=== PATIENT | female | born 1990 | race Caucasian/White ===

== ENCOUNTER 2023-03-19 05:14 | Inpatient (IN) | payer OTHER, SELFPAY ==
[2023-03-19] VITALS (53 sets, daily range): BP systolic 95–131; BP diastolic 34–83; PULSE 65–93; RESP 15–16; TEMP 36.3–37; O2SAT 91–99; BMI 34.9
[2023-03-19] MEDS: lactated ringers 1,000 ML 999 ML IV (06:15)
[2023-03-19 06:26] LABS: Basophils % 0.4 %; Eosinophils # 0.1 10^3/uL (0.0-0.8); Eosinophils % 1.1 %; Hematocrit 33.2 % (36-47); Lymphocytes # 2.7 10^3/uL (0.8-4.8); Lymphocytes % 25.6 %; Mean Corpuscular HGB Conc 31.6 g/dL (30-55); Mean Corpuscular Hemoglobin 26.4 pg (27-33); Mean Corpuscular Volume 83.6 fl (85-98); Mean Platelet Volume 9.7 fL (7.4-10.4); Monocytes # 0.8 10^3/uL (0.2-0.9); Monocytes % 7.8 %; Neutrophils % 64.3 %; Nucleated Red Blood Cells % 0 %; Platelet Count 256 10^3/cmm (157-399); Red Blood Count 3.97 10^6/uL (3.85-5.65); White Blood Count 10.56 10^3/uL (3.29-11.43)
--- NOTE | 2023-03-19 06:40 | PM.OBGYHP ---
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 She presents to the hospital today for a section due to breech presentation. Her has otherwise been unremarkable. There have been no complications. Her lab work has been unremarkable. Her blood type is O-. Her antibody screen is negative. Her Pap test was within normal limits. Her HPV was negative. She passed her 3-hour glucose screen. She received RhoGAM injection on 02 January. She is group B strep negative. The remainder of her infectious disease profile was within normal limits. Present Details : 3 Para: 1 Labs Rubella: Non-Immune RPR: Negative GBS: Negative Review of Systems General: Reports: 10 or more systems reviewed and unremarkable except in HPI and below Const: Reports: fatigue; Denies: fever(s) Eyes: Denies: change in vision Card: Denies: chest pain Musc: Reports: back pain Jerrod/Lymph: Denies: easy bruising Medications/Allergies Home Medications Medication Instructions Recorded Confirmed Last Taken Type ewjtvcqo-[id number]-Bh-FA 1 mg 1 tab PO DAILY 03/19/23 03/19/23 03/17/23 History tablet hydrocodone 5 mg-acetaminophen 325 1 - 2 tab PO Q4H PRN Moderate To 03/20/23 Unknown Rx mg tablet Severe Pain #28 tabs ibuprofen 800 mg tablet 800 mg PO TID #45 tabs 03/20/23 Unknown Rx Allergies Allergy/AdvReac Type Severity Reaction Status Date / Time No Known Allergies Allergy Verified 03/19/23 06:19 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 PFSH: Family History (Updated 03/19/23 @ 06:42 by Dave Zhou MD) Other Diabetes mellitus, type 2 Hypertension Social History Smoking and tobacco/nicotine status: never used tobacco/nicotine History History History 3 Term 1 0 Miscarriages/Ectopic 1 Living Children 1 Vitals/I&O/Wt Last Vital Signs Pulse 80 03/19/23 05:22 Resp 15 03/19/23 06:13 BP 110/68 03/19/23 05:22 O2 Del Method Room Air 12/11/23 06:22 Weight last 48 hrs Weight 223 lb Physical Exam Const: COMMON NORMALS: patient oriented x3 and alert HENMT: COMMON NORMALS: moist oral mucous membranes HEAD & SCALP: normal to inspection Chest: COMMONS NORMALS: normal inspection of the chest Resp: COMMON NORMALS: clear to auscultation bilaterally AUSCULTATION: clear to auscultation bilaterally Cardio: COMMON NORMALS: regular rate and regular rhythm RATE: regular rate RHYTHM: regular rhythm GI: INSPECTION: Yes normal to inspection and Yes other (Gravid) Extremity: COMMON NORMALS: normal to inspection GENERAL: Yes edema (Trace) Neuro: COMMON NORMALS: patient oriented x3, moves all extremities and no sensory deficits noted SENSORIUM/ORIENTATION: Yes alert Psych: COMMON NORMALS: mental status grossly normal Skin: COMMON NORMALS: no rashes or lesions noted GENERAL SKIN EXAM: no rashes or lesions noted Data 03/19/23 18:15 Results Labs OB ([facility]): Blood Type O Negative 03/19/23 Antibody Screen Positive 03/19/23 Hct 30.2 % (36-47) L 03/19/23 Hgb 9.60 g/dL (11.27-16.99) L 03/19/23 Rho(D) Type Negative 03/19/23 Plt Count 216 10^3/cmm (157-399) 03/19/23 A&P Assessment and plan (1) 39 weeks gestation of : (2) Breech presentation: We will proceed with a primary section due to breech presentation. We have discussed the risks including the risk of bleeding, infection, and damage to intra-abdominal organs. She and her have no further questions and wished to proceed. (3) Sterilization education: She also desires to have an intraoperative tubal ligation. We discussed the risks of bleeding, infection, damage to intra-abdominal organs. We also discussed the 1-200 chance of becoming again despite a successful tubal ligation. In addition we discussed the increased possibility of an ectopic . Attestations Medical Necessity Statement*: Routine and post care Coding Level of Care Code Acute Code for Chg Fwd Diagnoses 39 weeks gestation of Z3A.39 Breech presentation O32.1XX0 Sterilization education Z30.09
[2023-03-19] MEDS: metoclopramide 5 mg/mL SDV 2 mL 10 MG IVP (06:44)
[2023-03-19] MEDS: famotidine 20 mg/2 mL INJ IVP (06:45)
--- NOTE | 2023-03-19 06:45 | ANES.PREANE2 ---
Pre-Anesthetic Assessment Height/Weight: Height 1.7 m Weight 101.151 kg Pulse Resp BP O2 Del Method 80 16 110/68 Room Air 03/19/23 05:22 03/19/23 08:30 03/19/23 05:22 03/19/23 06:22 Preop Diagnosis: Breech Operation Date: 03/19/23 07:23 Proposed Procedures p Section 62420,O32.1xx9,Z34.83(Not Applicable) - Dave Zhou MD Familial anesthetic complications: None Was Beta Chiara taken within 24 hours: N/A Was Clonidine taken within 24 hours: N/A Last intake: Intake Last Liquid Date 03/18/23 Last Liquid Time 22:45 Last Solid Date 03/18/23 Last Solid Time 20:00 Social No alcohol and No tobacco Exam alert, oriented x 3, clear to auscultation bilaterally and regular rate & rhythm Airway Submandibular: within normal limits Cervical ROM: within normal limits Mallampati: Class II Dentition: full History/ROS No significant history except as noted Pulmonary None reported CV/HEM None reported None reported Hepatic None reported GI Gastroesophageal Reflux Disease Metabolic None reported Musc/skel None reported Neuropsych None reported Anesthetic Plan ASA status: 2 Anesthesia: Anesthesia Evaluation and Regional (specify below) (SAB) Risk of > 500 ml blood loss (7ml/kg in children): Yes, adequate IV access and fluids planned Medications/Allergies Home Medications Medication Instructions Recorded Confirmed Last Taken Type ayhgwovz-wof-Fc-FA 1 mg 1 tab PO DAILY 03/19/23 03/19/23 03/17/23 History tablet Allergies Allergy/AdvReac Type Severity Reaction Status Date / Time No Known Allergies Allergy Verified 03/19/23 06:19 [facility] Anesthesia Family History (Updated 03/19/23 @ 06:42 by Dave Zhou MD) Other Diabetes mellitus, type 2 Hypertension Social History Smoking and tobacco/nicotine status: never used tobacco/nicotine Female Reproductive History : 3 Data Anesthesia 03/19/23 06:03 Short CBC 03/19/23 Range/Units 06:03 WBC 10.56 (3.29-11.43) 10^3/uL Hgb 10.50 L (11.27-16.99) g/dL Hct 33.2 L (36-47) % MCV 83.6 L (85-98) fl Plt Count 256 (157-399) 10^3/cmm Neut % (Auto) 64.3 % Neut # (Auto) 6.80 (1.8-7.7) 10^3/uL Blood Bank 03/19/23 06:03 Blood Type O Negative Rho(D) Type Negative Antibody Screen Positive Cardiac Studies: No Data to Display
[2023-03-19] MEDS: citric acid-sodium citrate 30 mL UDC PO (06:46)
[2023-03-19] MEDS: ceFAZolin 2,000 MG in sodium chloride 0.9% (plus) 50 ML 100 MG IV (06:46)
--- NOTE | 2023-03-19 08:14 | PM.OP ---
Operative Report Date of procedure: March 19, 2023 Pre-op diagnosis: 32-year-old 3 para 1-0-1-1 at 39 weeks estimated gestational age presenting for a due to breech presentation. She also desires sterilization Post-op diagnosis: Status post low-transverse section with intraoperative bilateral tubal ligation Procedure done: Primary low-transverse section with a bilateral tubal ligation Specimens removed/disposition: 1. Female with a weight of 7 pounds 13 ounces and Apgars of 8, 9 2. Bilateral fallopian tube segments with the right segment being tagged 3. Placenta with a three-vessel cord delivered intact Pathology: Bilateral fallopian tube segments with the right segment being tagged Surgeon: Dave Zhou MD Lead Quality Control Technician: Ale Douglass Anesthesia: Spinal Estimated blood loss: 500 Complications: None Procedure: The patient was brought back to the operating room where she was prepped and draped in usual sterile fashion. Anesthesia was found to be adequate. A lower transverse skin incision was then made with a #10 blade. I then dissected down to the underlying subcutaneous tissue until arriving at the prerectal fascia. The fascia was then nicked with the scalpel bilaterally. The fascial incisions were then carried laterally with Sampson scissors. Attention was then turned to the superior aspect of the incision which was grasped with kochers and tented up away from the underlying rectus abdominis muscles. The muscles were then dissected away from the fascia manually, and later with Sampson scissors. Attention was then turned to the inferior aspect of the incision, and the fascia was dissected away from the underlying muscle in similar fashion. The rectus abdominis muscles were then spread manually. The peritoneum was entered manually. Excellent visualization of the uterus was noted. A lower transverse uterine incision was then made with a #10 blade. Upon arriving at the intrauterine cavity, the uterine incision was then extended manually. The was noted to be in vertex position. The baby was delivered without difficulty from a footling breech presentation. After the baby was completely delivered, the mouth and nose were suctioned at the site of the incision. There was no meconium. There was no nuchal cord. The cord was cut and clamped. The baby was then handed to the waiting nurse. The placenta was removed intact. The uterus was externalized. The intrauterine cavity was cleansed of any remaining debris. The uterine incision was reapproximated in 2 layers. The first layer was performed with 0 Vicryl in a running locked stitch. The second layer was an imbricating stitch also using 0 Vicryl. The uterus was replaced into the abdomen. The peritoneum was then irrigated with warm saline. I reexamined the uterine incision and found it to be hemostatic. The rectus abdominis muscles were then reapproximated using 0 Vicryl in a running stitch. The fascia was then reapproximated using 0 Vicryl in running stitch. The subcutaneous tissue was then reapproximated using 0 Vicryl in a running stitch. The skin was reapproximated using rafi. A sterile dressing was placed. All counts were correct x2. Both the mother and baby were in stable condition.
--- NOTE | 2023-03-19 08:50 | ANE.PACU2 ---
Inpatient post-anesthesia follow up: Airway intact: Yes Vital signs: Temperature 97.8 F Pulse Rate 93 Respiratory Rate 16 Blood Pressure 131/83 Pulse Oximetry 99 Oxygen Delivery Me thod Room Air Oxygen Flow Rate Fraction of Inspir ed Oxygen Hydration adequate: Yes Nausea and vomiting: No Pain level: 1 Mental status: Baseline
[2023-03-19] MEDS: dextrose 5%-lactated ringers 1,000 ML 125 ML IV ×2 (11:36→20:12)
[2023-03-19] MEDS: HYDROcodone-acetaminophen 5-325 mg Tablet PO ×2 (12:32→20:13)
[2023-03-19] MEDS: ketorolac 30 mg/mL INJ IVP ×2 (13:41→20:14)
[2023-03-19 18:49] LABS: Hematocrit 30.2 % (36-47); Mean Corpuscular HGB Conc 31.8 g/dL (30-55); Mean Corpuscular Hemoglobin 26.7 pg (27-33); Mean Corpuscular Volume 84.1 fl (85-98); Mean Platelet Volume 9.7 fL (7.4-10.4); Platelet Count 216 10^3/cmm (157-399); Red Blood Count 3.59 10^6/uL (3.85-5.65); White Blood Count 13.57 10^3/uL (3.29-11.43)
[2023-03-19] MEDS: docusate sodium 100 mg Capsule PO (20:13)
[2023-03-19] MEDS: ferrous sulfate EC 325 mg Tablet PO (20:13)
[2023-03-20] VITALS (7 sets, daily range): BP systolic 110–124; BP diastolic 51–69; PULSE 77–82; RESP 16; TEMP 36.6–37; O2SAT 97
[2023-03-20] MEDS: HYDROcodone-acetaminophen 5-325 mg Tablet PO ×5 (00:48→17:04)
[2023-03-20] MEDS: ketorolac 30 mg/mL INJ IVP (02:30)
--- NOTE | 2023-03-20 07:45 | PM.OBGYDC ---
Discharge Providers BALLISTICS PROFESSOR Date of Admission: 03/19/23 05:14 Date of Discharge: 03/20/23 Attending Provider at Admission: Dave Zhou MD Attending Provider at Discharge: Dave Zhou MD Diagnoses at Discharge Discharge Diagnosis (1) 39 weeks gestation of : Status: Acute (2) Breech presentation: Status: Acute (3) Sterilization education: Status: Acute Reason for Visit Reason for Visit: edc 03/25/23 Hospital Course Hospital Course The patient presented to the hospital for a scheduled primary due to breech presentation. The was unremarkable. Her course was also unremarkable. She was passing flatus by the same night as a . She tolerated food well. She is ambulating without difficulty. Her pain was well-controlled. Her bleeding was within normal limits. Information Peripartum Data: Infant Delivery Method: Physical Exam Narrative: She is in no acute distress Lungs are clear auscultation bilaterally Her heart has a regular rate and rhythm Her fundus is below the umbilicus and firm Her dressing is clean, dry and intact Her extremities have trace edema Urinary Catheter Management: Byrd: Cath Placed During This Visit: yes Urinary Catheter Date of Insertion: 03/19/23 Urinary Catheter Time of Insertion: 07:10 History History History 3 Term 1 0 Miscarriages/Ectopic 1 Living Children 1 Discharge Data Studies Completed and Pending Pending at discharge Category Date Time Status Pathology: Surgical [PTH] Routine Pth 03/19/23 08:24 Received Laboratory Results WBC 13.57 10^3/uL (3.29-11.43) H 03/19/23 18:15 RBC 3.59 10^6/uL (3.85-5.65) L 03/19/23 18:15 Hgb 9.60 g/dL (11.27-16.99) L 03/19/23 18:15 Hct 30.2 % (36-47) L 03/19/23 18:15 MCV 84.1 fl (85-98) L 03/19/23 18:15 MCH 26.7 pg (27-33) L 03/19/23 18:15 MCHC 31.8 g/dL (30-55) 03/19/23 18:15 RDW 14.0 % (12.1-15.1) 03/19/23 18:15 Plt Count 216 10^3/cmm (157-399) 03/19/23 18:15 MPV 9.7 fL (7.4-10.4) 03/19/23 18:15 Neut % (Auto) 64.3 % 03/19/23 06:03 Lymph % (Auto) 25.6 % 03/19/23 06:03 Craig % (Auto) 7.8 % 03/19/23 06:03 Eos % (Auto) 1.1 % 03/19/23 06:03 Baso % (Auto) 0.4 % 03/19/23 06:03 Neut # (Auto) 6.80 10^3/uL (1.8-7.7) 03/19/23 06:03 Lymph # (Auto) 2.7 10^3/uL (0.8-4.8) 03/19/23 06:03 Craig # (Auto) 0.8 10^3/uL (0.2-0.9) 03/19/23 06:03 Eos # (Auto) 0.1 10^3/uL (0.0-0.8) 03/19/23 06:03 Baso # (Auto) 0.0 10^3/uL (0.0-0.1) 03/19/23 06:03 Nucleated RBC % (auto) 0 % 03/19/23 06:03 Nucleated RBCs # 0.0 /100WBC 03/19/23 06:03 Blood Type O Negative 03/19/23 06:03 Rho(D) Type Negative 03/19/23 06:03 Antibody Screen Positive 03/19/23 06:03 Antibody Identification Anti-D 03/19/23 06:03 Vitals Last Vital Signs Temp 97.9 F 03/20/23 05:36 Pulse 77 03/20/23 05:30 Resp 16 03/19/23 11:48 BP 110/63 03/20/23 05:30 Pulse Ox 97 03/20/23 05:30 O2 Del Method Room Air 03/19/23 06:22 Results Labs OB ([facility]): Blood Type O Negative 03/19/23 Antibody Screen Positive 03/19/23 Hct 30.2 % (36-47) L 03/19/23 Hgb 9.60 g/dL (11.27-16.99) L 03/19/23 Rho(D) Type Negative 03/19/23 Plt Count 216 10^3/cmm (157-399) 03/19/23 Discharge Plan Discharge Patient Disposition: Home Condition: Stable Prescriptions: New ibuprofen 800 mg Tablet 800 mg PO TID Qty: 45 0RF hydrocodone-acetaminophen 5-325 mg Tablet 1 - 2 tab PO Q4H PRN (Reason: Moderate To Severe Pain) Qty: 28 0RF Continued jrevzklc-hud-Nj-FA 1 mg Tablet 1 tab PO DAILY Discharge Orders: Discharge Order (Routine); Ordered 03/20/23 Ordered By: Dave Zhou Referrals: Dave Zhou MD [Physician] - 03/27/23 Discharge Diet: Usual diet Discharge Activity: Limit activity as instructed Patient Instructions: Opioid Safety Discharge Attestations BALLISTICS PROFESSOR Time Spent in Discharge Care*: less than 30 min Coding Level of Care Code Acute Code for Chg Fwd Diagnoses 39 weeks gestation of Z3A.39 Breech presentation O32.1XX0 Sterilization education Z30.09
[2023-03-20] MEDS: prenatal vitamin Capsule 1 CAP PO (08:58)
[2023-03-20] MEDS: ferrous sulfate EC 325 mg Tablet PO ×2 (08:58→17:03)
[2023-03-20] MEDS: docusate sodium 100 mg Capsule PO ×2 (08:58→17:04)
[2023-03-20] MEDS: ibuprofen 800 mg tablet PO ×2 (11:18→16:05)
== END 2023-03-20 19:15 | disposition home or self-care (01) | DRG 785 ==
PROVIDERS: Admitting Provider Family Medicine; Visit Provider Family Medicine
PROC: 10D00Z1 Extraction of Products of Conception, Low, Open Approach (ICD-10-PCS; CPT 59514; principal; 2023-03-19 07:00)
DX: O32.8XX0 Maternal care for other malpresentation of fetus, not applicable or unspecified (principal); Z3A.39 39 weeks gestation of pregnancy; Z37.0 Single live birth; Z30.2 Encounter for sterilization
CPT/HCPCS: 36415; 51702; 59025; 59409; 80503; 85025; 85027; 86850; 86870; 86900; 88302; 96374; 96376; 98960; 99211; J0690; J1885; J2274; J2405; J2765; J3010; J3490; J7120; J7121